=== PATIENT | male | born 1975 | race Caucasian/White ===

== ENCOUNTER 2022-07-21 08:11 | Outpatient (CLI) | payer BC ==
[2022-07-21] MEDS ORDERED: Iopamidol 300 61% 100 ML VIAL FS ONE (11:50)
== END 2022-07-21 08:12 | disposition home or self-care (01) ==
LOC: CSHCT 08:11
PROVIDERS: ATTEND Internal Medicine Gastroenterology
DX: C18.7 Malignant neoplasm of sigmoid colon (principal)
CPT/HCPCS: 71260; 74177; Q9967